=== PATIENT | female | born 1950 | race Caucasian/White ===

== ENCOUNTER → 2016-05-17 | Outpatient (CLI) | payer OTHER ==
--- NOTE | 2016-05-17 17:52 | US ---
Ultrasound-Guided Vacuum-Assisted Core Biopsy of the Right Breast, May 17, 2016 Indication: Stellate lesion outer right breast 9 to 10 o'clock position on mammograms. Crosscutting Measure #226: Current tobacco user: No. Consent: The procedure, risks, and benefits were discussed with the patient. She agreed to proceed an d signed the consent form. Comparison: Diagnostic mammograms from August 2015 and April 2016 and right breast ultrasound dated April 25, 2016. Technique: I rescanned the entire outer right breast and localized a small, 5 x 5 mm hypoechoic lesio n in the outer right breast 9:30 position 5 cm from the nipple corresponding to the location and size of the lesion on the diagnostic mammograms. I rescanned the 11 o'clock position 12 cm from the nippl e and can not recreate the suspected lesion on the previous ultrasound. I have discussed the discrepa ncy with the patient and we proceeded with the biopsy of the finding at the 9:30 position. A [id number] approach was selected. The skin was marked, cleaned with ChloraPrep and sterilely draped. The skin and soft tissues were anesthetized with 1% lidocaine and bupivacaine. Through a 2 m m skin oliver, a 12-gauge Suros needle was advanced along the undersurface of the lesion. Eight (8) vac uum-assisted core biopsy samples were obtained. A SecurMark clip was deployed, the needle was removed , and pressure was applied to the biopsy site for 10 minutes. No significant bleeding or complication was incurred. Impression: Successful ultrasound-guided core biopsy of right breast lesion at 9:30 position 5 cm fro m nipple. Plan: Postbiopsy mammograms.
--- NOTE | 2016-05-17 17:54 | MA ---
Right Diagnostic Mammogram dated May 17, 2016 Indication: Evaluate clip deployment following ultrasound-guided breast biopsy. Technique: True lateral, CC and MLO views of the right breast. Comparison: April 2016, August 2015, April 2013, and January 2012. Findings: The deployment of the biopsy clip nicely correlates with the focal asymmetry on the diagnos tic mammograms. No hematoma. Impression: Good mammographic and ultrasound correlation. Clip is well deployed. Plan: Pending histologic results. [facility] will send a result letter to the patient.
== END ==
LOC: FIMAGING 11:44
PROVIDERS: ATTEND Physician Assistant
PROC: 0HBT3ZX Excision of Right Breast, Percutaneous Approach, Diagnostic (ICD-10-PCS; principal; 2016-05-17)
DX: R92.8 Other abnormal and inconclusive findings on diagnostic imaging of breast (principal)
CPT/HCPCS: G0206

== ENCOUNTER 2016-06-02 06:31 | Day surgery (SDC) | payer OTHER ==
[2016-06-02] MEDS ORDERED: LIDOCAINE 1% 5 ML SDV ONE (07:02)
--- NOTE | 2016-06-02 09:33 | NM ---
Nuclear Medicine Lymphoscintigraphy History: Right breast cancer preoperative lymph node staging. Technique: Informed consent was given. The right breast was sterilely prepped and draped. Local anes thesia is obtained by cold spray at the injection site. One subcutaneous and one retroareolar aliquot of Lymphoseek are injected for total dose of 614 uCi of Tc 99m. At the request of the referring physician, no imaging was performed. Findings: Patient tolerated the procedure well and no complications occurred. Impression: Preoperative lymphoscintigraphy right breast.
[2016-06-02] MEDS ORDERED: ALBUTEROL 3 ML DEYVIAL ONE (09:36)
[2016-06-02] MEDS ORDERED: SKIN ADHESIVE (DERMABOND) 1 EACH TP ONE (09:36)
[2016-06-02] MEDS ORDERED: BUPIVACAINE/EPI 0.5% 30 ML SDV ONE (09:36)
[2016-06-02] MEDS ORDERED: SCOPOLAMINE HYDROBROMIDE 1.5 MG PATCH TD ONE ×2 (09:36→10:00)
--- NOTE | 2016-06-02 09:36 | MA ---
Mammographically Guided Needle Localization Right Breast Reason for examination: Preoperative localization for biopsy proven breast cancer. Technique: Informed consent was obtained. Utilizing mammographic guidance and following sterile prepa ration and local anesthesia, the hookwire localization needle was advanced to the biopsy site. The fi nal films demonstrate the needle to be adjacent to the biopsy site marker with the corey at the level of the marker. The needle passes through the small focal spiculated lesion which is just deep to the biopsy site francine amaya. The films were available in the Operating Room. Impression: Preoperative localization of the biopsy site in the right breast.
[2016-06-02] MEDS ORDERED: LIDO/EPI 1% **Not for Epidural 20 ML MDV ONE (09:37)
[2016-06-02] MEDS ORDERED: fentaNYL 100 MCG/2 ML INJ ONE ×2 (09:47→12:12)
[2016-06-02] MEDS ORDERED: PROPOFOL 200 MG/20 ML VIAL ONE (09:48)
[2016-06-02] MEDS ORDERED: MIDAZOLAM 2 MG/2 ML VIAL ONE (09:51)
[2016-06-02] MEDS ORDERED: LIDOCAINE 2% 5 ML SDV ONE (09:52)
[2016-06-02] MEDS ORDERED: SUCCINYLCHOLINE CHLORIDE*ANESTHESIA ONLY*200 MG/10 ML SYR IVP ONE (09:53)
[2016-06-02] MEDS ORDERED: ONDANSETRON 4 MG/2 ML VIAL ONE (09:54)
[2016-06-02] MEDS ORDERED: DEXAMETHASONE 4 MG/ML VIAL ONE ×2 (09:54)
[2016-06-02] MEDS ORDERED: ALBUTEROL 3 ML DEYVIAL IH ONE (10:00)
--- NOTE | 2016-06-02 11:30 | MA ---
Specimen radiography. Findings: The specimen radiograph contains the targeted Suros biopsy site marker and the spiculated o pacity. The tip of the localization needle is also contained within the specimen. Impression: The targeted Suros marker and the targeted spiculated lesion are contained within the spe cimen. A report was called to Dr. Rony Isabel in the operating room.
[2016-06-02] MEDS ORDERED: oxyCODONE IR 5 MG TAB PO PRN (12:24)
[2016-06-02] MEDS ORDERED: HYDROCODONE/APAP 5/325 TAB ONE (12:34)
--- NOTE | 2016-06-02 14:06 | GOP ---
[f rep st] OPERATIVE REPORT DATE OF OPERATION: 06/02/2016 SURGEON: Rony Isabel MD ANESTHESIA: General. ANESTHESIOLOGIST: Roman Del Rio MD PREOPERATIVE DIAGNOSIS: Right breast carcinoma. POSTOPERATIVE DIAGNOSIS: Right breast carcinoma. PROCEDURE PERFORMED: Right partial mastectomy with mammographic localization with axillary sentinel node biopsy. INDICATIONS: 66-year-old female with newly diagnosed right breast carcinoma. She is undergoing a partial mastectomy with sentinel node sampling at this time. Risks and benefits were explained including bleeding, infection, tumor recurrence, need for additional margin resection, cosmetic deformity, arm edema , nerve injury, and indications for completion axillary dissection. All questions were answered. She desires to proceed. DESCRIPTION OF PROCEDURE: General anesthesia was induced upon returning from wire localization and lymphoscintigraphy. The right breast was infiltrated with 1% lidocaine and 0.5% Marcaine, as was the axilla. A low axillary incision was created. The axillary fat pad was identified. Two large, fatty appearing lymph nodes were identified measuring 7000 units on the gamma counter. These were excised. Multiple small axillary fatty lymph nodes were easily fragmented, measuring approximately 1200 units on the gamma counter. This small collection was removed with the background activity being less than 100 units. Frozen sectioning showed no evidence of metastatic malignancy within 6 identified nodes. Satisfactory hemostasis was assured. The axilla was closed in layers with absorbable suture by Dermabond. A 9 o'clock circumareolar incision was created. The breast was dissected down to the localization wire. Using electrocautery, a large core of tissue was taken encompassing the entire area of concern. This was removed from the field, tagged for orientation, and sent for specimen processing showing satisfactory clip inclusion. Additional margins were obtained from all 6 borders. The posterior margin included portions of the pectoralis major fascia. Satisfactory hemostasis was assured throughout the breast cavity. Hemoclips were applied circumferentially for postoperative partial breast radiation discussion. The wound was closed in layers with absorbable suture by Dermabond. The patient was taken to recovery uneventfully. /[id number]/MODL MTDD
== END 2016-06-02 13:30 | disposition home or self-care (01) ==
LOC: FSGY 06:31 → EDSTATUS 10:00 → FSGY 13:30
PROVIDERS: ATTEND Surgery
PROC: 0HBT0ZZ Excision of Right Breast, Open Approach (ICD-10-PCS; principal; 2016-06-02 10:00)
PROC: 07B50ZX Excision of Right Axillary Lymphatic, Open Approach, Diagnostic (ICD-10-PCS; principal; 2016-06-02 10:00)
DX: C50.411 Malignant neoplasm of upper-outer quadrant of right female breast (principal)
CPT/HCPCS: 19301; 38525; 38792; 76098; A9520; J0330; J1100; J2250; J2405; J2704; J3010

== ENCOUNTER → 2016-09-05 | Outpatient (CLI) | payer OTHER | LOC: FIMAGING 12:04 | PROVIDERS: ATTEND Surgery | DX: Z09 Encounter for follow-up examination after completed treatment for conditions other than malignant neoplasm (principal) ==

== ENCOUNTER → 2016-12-25 | Outpatient (CLI) | payer OTHER | LOC: FIMAGING 08:31 | PROVIDERS: ATTEND Internal Medicine | DX: Z12.31 Encounter for screening mammogram for malignant neoplasm of breast (principal); Z85.3 Personal history of malignant neoplasm of breast | CPT/HCPCS: G0202 ==

== ENCOUNTER → 2016-12-28 | Outpatient (CLI) | payer OTHER | LOC: FIMAGING 09:07 | PROVIDERS: ATTEND Internal Medicine Hematology & Oncology | DX: Z13.820 Encounter for screening for osteoporosis (principal); M85.80 Other specified disorders of bone density and structure, unspecified site; C50.411 Malignant neoplasm of upper-outer quadrant of right female breast ==

== ENCOUNTER → 2017-08-21 | Outpatient (CLI) | payer OTHER | LOC: BHFA 10:00 | PROVIDERS: ATTEND Internal Medicine Cardiovascular Disease | DX: Z51.11 Encounter for antineoplastic chemotherapy (principal) ==

== ENCOUNTER → 2017-12-27 | Outpatient (CLI) | payer OTHER, MEDICARE | LOC: FIMAGING 12:52 | PROVIDERS: ATTEND Internal Medicine | DX: R92.8 Other abnormal and inconclusive findings on diagnostic imaging of breast (principal); Z85.3 Personal history of malignant neoplasm of breast ==